=== PATIENT | female | born 1970 | race American Indian/Alaskan Native ===

== ENCOUNTER 2020-02-07 20:06 | Emergency (ER) | payer SELFPAY ==
[~2020-02-07] VITALS: Ht 162.6 cm; Wt 65.5 kg
[2020-02-07 20:13] VITALS: TEMP 99
[2020-02-07] MEDS ORDERED: PREDNISONE20 MG PO (22:27)
[2020-02-07 23:58] VITALS: BP 150/60; PULSE 87
== END 2020-02-08 00:02 | disposition home or self-care (01) ==
LOC: COL.ER 20:06
DX: L50.9 Urticaria, unspecified (principal); N89.8 Other specified noninflammatory disorders of vagina; Z91.018 Allergy to other foods
CPT/HCPCS: J0696; J1200; J2930

== ENCOUNTER → 2020-06-12 | Outpatient (CLI) | payer BC, OTHER ==
[~2020-06-12] MED LIST: PREDNISONE20 MG PO
== END ==
LOC: MC.RAD 12:52
DX: Z12.31 Encounter for screening mammogram for malignant neoplasm of breast (principal)